=== PATIENT | male | born 1995 | race Caucasian/White ===

== ENCOUNTER 2024-07-24 11:59 | Emergency (ER) | payer SELFPAY ==
[2024-07-24] MEDS: BENTYL 20 MG PO (12:10)
[2024-07-24 12:11] VITALS: BP 122/77
[2024-07-24] MEDS: TORADOL 30 MG IV (13:02)
[2024-07-24] MEDS: NSS 1000 IV (13:03)
[2024-07-24] MEDS: ZOFRAN 4 MG IV (13:03)
[2024-07-24 13:23] LABS: Hematocrit 30.8 % (39.0-52.0); Hemoglobin 8.8 g/dL (13.0-18.0); Mean Corp Hgb Conc. 28.6 g/dL (33.0-37.0); Mean Corpuscular Hgb 18.8 pg (27.0-31.0); Mean Corpuscular Volume 65.8 fL (80.0-94.0); Platelet Count 228 10^3/uL (130-400); Red Blood Cell Count 4.68 10^6/uL (4.70-6.10); White Blood Cell Count 9.3 10^3/uL (4.8-10.8)
[2024-07-24 13:30] LABS: Lactic Acid 2.1 mmol/L (0.7-2.0)
[2024-07-24 13:31] LABS: ALT (SGPT) 47 U/L (0-50); AST (SGOT) 54 U/L (17-59); Albumin 4.4 g/dl (3.5-5.0); Alkaline Phosphatase 76 U/L (38-126); Blood Urea Nitrogen 14 mg/dl (9-20); Calcium 9.1 mg/dl (8.4-10.2); Carbon Dioxide 23 mmol/L (22-30); Chloride 104 mmol/L (98-107); Glucose 147 mg/dl (70-99); Lipase 71 U/L (23-300); Potassium 3.3 mmol/L (3.5-5.1); Sodium 138 mmol/L (135-145); Total Bilirubin 2.1 mg/dl (0.2-1.3); Total Protein 6.7 g/dl (6.3-8.2); eGFR > 60.00
--- NOTE | 2024-07-24 13:52 | ED.GENMED ---
History of Present Illness
General
Chief Complaint: Abdominal Pain
Source: patient
Exam Limitations: none
Time Seen by Provider: 07/24/24 12:37
Nursing documentation reviewed up to this point in time: agreed with
History of Present Illness
History of Present Illness:
28-year-old male without significant past medical history presenting to the emergency department today with concerns of an upper abdominal severe discomfort mainly to the left upper quadrant and epigastric feels like a twisting sensation without
radiation 1 episode of vomiting associated. Claims what had a norovirus like illness 1 week ago that seem to improve until today. Denies chest pain shortness of breath. Did not take medications today. Not an alcohol drinker.
Review of Systems
Review of Systems
Allergies reviewed?: Yes
All Other Systems: ROS reviewed and negative except as documented in HPI and ROS
Phy Exam
Physical Exam
Physical Exam:
GENERAL: Alert , in no apparent distress
EYE: pupils equal and reactive
NECK: Supple, no significant adenopathy.
ENT: o/p clr, mmm.
CARDIAC: Regular rate and rhythm .
LUNGS: Clear breath sounds bilaterally, no acute respiratory distress, no wheezes/rales/rhonchi
ABDOMEN: Vague discomfort throughout the upper abdomen soft benign abdomen to the lower abdomen. Nonperitoneal
NEUROLOGICAL: Alert and oriented, no focal neuro deficits
SKIN: Warm and dry, skin intact.
MUSCULOSKELETAL: No edema, well perfused.
PSYCH: Normal and appropriate interaction.
Course
Orders/Labs/Results
Orders:
Orders
07/24/24 12:07
Dicyclomine [Bentyl] 20 mg .ROUTE .STK-MED ONE
07/24/24 12:09
Dicyclomine [Bentyl] 20 mg PO NOW STA
07/24/24 12:51
0.9% Sodium Chloride 1000 ml [Nss] 1,000 ml IV BOLUS
07/24/24 12:57
CT Abd/Pel (IV only)-DH only Urgent
Comment:
Reason For Exam: luq pain severe, no PO
Ketorolac [Toradol] 30 mg IV NOW STA
Ondansetron Injectable [Zofran] 4 mg IV NOW STA
07/24/24 13:02
Complete Blood Count/With Diff Urgent
Comprehensive Metabolic Panel Urgent
Lactic Acid Urgent
Lipase Urgent
Urinalysis Reflex To Culture Urgent
Date Specimen was Collected: 07/24/24
Time Specimen was Collected: 12:53
Urine Microscopic Reflex Cult Urgent
07/24/24 14:22
Morphine Sulfate 4 mg IV NOW STA
07/24/24 16:38
Tamsulosin [Flomax] 0.4 mg PO NOW STA
Abnormal Lab Results
07/24/24
13:02
RBC 4.68 L 10^6/uL
(4.70-6.10)
Hgb 8.8 L g/dL
(13.0-18.0)
Hct 30.8 L %
(39.0-52.0)
MCV 65.8 L fL
(80.0-94.0)
MCH 18.8 L pg
(27.0-31.0)
MCHC 28.6 L g/dL
(33.0-37.0)
RDW 18.0 H %
(11.5-14.5)
Abs Immat Gran (auto) 0.1 H 10^3/uL
(0-0.05)
Absolute Neuts (auto) 7.3 H 10^3/uL
(1.4-6.5)
Neutrophils % 78.7 H %
(42.2-75.2)
Lymphocytes % 14.8 L %
(20.5-51.1)
Potassium 3.3 L mmol/L
(3.5-5.1)
Glucose 147 H mg/dl
(70-99)
Lactic Acid 2.1 H mmol/L
(0.7-2.0)
Total Bilirubin 2.1 H mg/dl
(0.2-1.3)
Urine Ketones 2+ A
(Negative)
Ur Occult Blood Reflex 4+ A
(Negative)
Urine Albumin (Reflex) 2+ A
(Neg - Trace)
07/24/24 13:02
07/24/24 13:02
Vital Signs
Initial and Last Documented VS:
Initial Vital Signs
Temp Pulse Resp BP Pulse Ox
97.6 F 77 22 122/77 99
07/24/24 12:11 07/24/24 12:11 07/24/24 12:11 07/24/24 12:11 07/24/24 12:11
Last Documented Vital Signs
Temp Pulse Resp BP Pulse Ox
97.6 F 78 20 130/74 99
07/24/24 12:11 07/24/24 14:36 07/24/24 14:36 07/24/24 14:36 07/24/24 14:36
MDM/Problems Addressed
MDM/Problems Addressed:
28-year-old male presenting to the emergency department today with concerns of upper abdominal discomfort mainly to the left upper quadrant moving to the epigastric region described as a twisting severe pain. Believes he had norovirus last week
that seem to improve. On arrival here vital signs are normal patient does seem to be in significant discomfort mildly reproducible discomfort to the left upper quadrant epigastric region the remainder of the abdomen is soft and benign. No
peritoneal signs. Labs were obtained showing a hemoglobin of 8 point. No old levels for comparison. Potassium slightly low at 3.3 slight elevation of lactic acid. Patient with complete resolution of symptoms after receiving medications here.
Found of a 2 mm stone to the left ureter explaining patient's symptoms. Also had incidental findings that were discussed with the patient. Hemoglobin at 8.8 is baseline for the patient due to her chronic thalassemia. Otherwise stable for
outpatient management return precautions given.
*Critical Care Note
Total Time (30-74mins, 75-104mins- exclusive of procedures): Not Applicable
ED Attending Note
-
Portions of this chart may have been created with voice recognition software.� Occasional wrong word or��sound alike� substitutions may have occurred due to the inherent limitations of voice recognition software.
Discharge Plan
Departure
Patient Disposition: Home (Routine Discharge)
Date of Disposition: 07/24/24
Time of Disposition: 16:38
Patient with high blood pressure during this ER visit?: No
Condition: Good
Covid-19: Not Applicable
Discharge Problem:
Calculus, ureteral
Instructions: Kidney Stones (DC)
Prescriptions:
New
tamsulosin [Flomax] 0.4 mg capsule
0.4 mg PO HS Qty: 7 0RF
oxycodone 5 mg tablet
5 mg PO Q8H PRN (Reason: Pain) Qty: 5 0RF
Referrals:
Loki Glover DO [Family Provider] -
Edgardo Kaur Jr., MD [Active] - Follow up in 5-7 days
Activity Restrictions/Additional Instructions:
You came to the emergency department today with concerns of kidney stone. Here you are found to have a 2 mm obstructing stone in the left ureter likely causing your symptoms. Please take the prescribed occasions and follow-up closely with urology
if symptoms are persisting. Otherwise you did have findings of enlargement of your liver and spleen you should follow-up closely as an outpatient for monitoring and further assessment of this. Return for any worsening, new or concerning symptoms.
Interventions
Interventions:
*Risk Screen - Suicide Last Done: 07/24/24 12:11
*General Assessment Last Done: 07/24/24 12:15
*Neglect/Abuse Screening Last Done: 07/24/24 12:11
ED- Fall Risk Assessment Last Done: 07/24/24 12:15
*ED COVID-19 Vaccine History Last Done: 07/24/24 12:11
FC-Zmiphh-Gduxgbjadq Assessment Last Done: 07/24/24 12:15
Discharge Date and Time
Print Language: S[place]
[2024-07-24 13:55] LABS: % Basophils 0.2 % (0-2); % Eosinophils 0.3 % (0-6); % Immature Granulocytes 0.5 % (0-0.5); % Lymphocytes 14.8 % (20.5-51.1); % Monocytes 5.5 % (1.7-9.3); % Neutrophils 78.7 % (42.2-75.2); Absolute Immature Granulocytes 0.1 10^3/uL (0-0.05); Absolute Lymphocytes 1.4 10^3/uL (1.2-3.4); Absolute Monocytes 0.5 10^3/uL (0.1-0.6); Absolute Neutrophils 7.3 10^3/uL (1.4-6.5); Nucleated Red Blood Cells % 0 % (-)
[2024-07-24 14:36] VITALS: BP 130/74
[2024-07-24] MEDS: MORPHINE SULFATE 4 MG IV (14:47)
[2024-07-24 15:59] LABS: Urine Albumin 2+ (Neg - Trace); Urine Bilirubin Negative (Negative); Urine Character Clear (Clear); Urine Color Yellow; Urine Glucose Negative (Negative); Urine Ketone 2+ (Negative); Urine Leukocyte Negative (Negative); Urine Nitrite Negative (Negative); Urine Occult Blood 4+ (Negative); Urine Specific Gravity 1.005 (<1.030); Urine Urobilinogen Negative (Neg - 1+); Urine pH 6.5 (5.0-9.0)
[2024-07-24 16:42] VITALS: BP 126/72
[2024-07-24] MEDS: FLOMAX 0.4 MG PO (16:50)
[2024-07-24 17:08] LABS: Urine Bacteria Few (Negative); Urine Red Blood Cell 26-30 /HPF (0-2); Urine Squamous Cell 0-2 /LPF (Few); Urine White Cell 0-2 /HPF (0-5)
== END 2024-07-24 17:43 | disposition home or self-care (01) ==
LOC: EMR 11:59
PROVIDERS: Physician Assistant; EMERGENCY PHYSICIAN Emergency Medicine; FAMILY PHYSICIAN Family Medicine
DX: N20.1 Calculus of ureter (principal)
CPT/HCPCS: 99284; 96374; 96375 ×2; 96361; 74177; 80053; 81003; 81015; 83605; 83690; 85025; Q9967